=== PATIENT | female | born 1965 | race Caucasian/White ===

== ENCOUNTER → 2016-09-11 | Outpatient (CLI) | payer BC ==
[~2016-09-11] MED LIST: AMT/25 PO; IBUP-1277 PO; OXYC-57 PO; TYLOTC500 PO
== END | disposition home or self-care (01) ==
LOC: C.PAPS 15:58
PROVIDERS: ATTEND Obstetrics & Gynecology
DX: Z01.419 Encounter for gynecological examination (general) (routine) without abnormal findings (principal)